=== PATIENT | male | born 1995 | race Two or more races ===

== ENCOUNTER 2018-05-27 11:00 | Inpatient (IN) | payer OTHER ==
[~2018-05-27] VITALS: Ht 170.2 cm; Wt 82.6 kg
== END 2018-06-07 17:52 | disposition home or self-care (01) | DRG 331 ==
LOC: O/R 06-04 08:30 → SURG 06-04 08:30 → RECOVERY 06-04 10:45 → SURG 06-04 20:31
PROVIDERS: Colon & Rectal Surgery
PROC: 0DTP4ZZ Resection of Rectum, Percutaneous Endoscopic Approach (ICD-10-PCS; 2018-06-04)
PROC: 0D1B4Z4 Bypass Ileum to Cutaneous, Percutaneous Endoscopic Approach (ICD-10-PCS; 2018-06-04)
PROC: 0DTE4ZZ Resection of Large Intestine, Percutaneous Endoscopic Approach (ICD-10-PCS; principal; 2018-06-04 10:45)
DX: D12.7 Benign neoplasm of rectosigmoid junction (principal); D64.89 Other specified anemias

== ENCOUNTER 2018-08-19 10:51 | Inpatient (IN) | payer OTHER ==
[~2018-08-19] VITALS: Ht 170.2 cm; Wt 77.1 kg
== END 2018-09-13 10:39 | disposition home or self-care (01) | DRG 330 ==
LOC: O/R 09-11 05:36 → SURG 09-11 05:36 → SURH 09-11 07:00 → SURG 09-11 11:48
PROVIDERS: ADMIT Colon & Rectal Surgery
PROC: 0DQB4ZZ Repair Ileum, Percutaneous Endoscopic Approach (ICD-10-PCS; principal; 2018-09-11 07:00)
DX: Z43.2 Encounter for attention to ileostomy (principal); D62 Acute posthemorrhagic anemia; D12.6 Benign neoplasm of colon, unspecified

== ENCOUNTER 2018-08-26 10:52 | Outpatient (CLI) | payer OTHER | END 2018-08-26 16:59 | disposition home or self-care (01) | LOC: RX STUDY 10:52 | DX: D12.9 Benign neoplasm of anus and anal canal (principal); Z83.71 Family history of colonic polyps; Z80.0 Family history of malignant neoplasm of digestive organs ==

== ENCOUNTER 2019-07-11 08:30 | Day surgery (SDC) | payer OTHER | END 2019-07-11 15:20 | disposition home or self-care (01) | LOC: AMB-ENDOS 08:30 | DX: K62.89 Other specified diseases of anus and rectum (principal) ==